=== PATIENT | female | born 1995 | race Caucasian/White ===

== ENCOUNTER 2024-09-22 20:31 | Emergency (ER) | payer MEDICAID ==
[~2024-09-22] VITALS: Ht 154.9 cm; Wt 52.5 kg
[2024-09-23] MEDS: LIDOcaine 1% W/epiNEPHrine 1:100,000 20ml vial IJ ONE (02:00)
[2024-09-23] MEDS: TETanus/Pertussis (Acell)/Diphther VAC/PF (Tdap-Adult) 0.5ml syringe IMVAC ONE (02:11)
[2024-09-23] MEDS: cephalexin 250mg capsule PO ONE (02:11)
[2024-09-23] MEDS ORDERED: CEPH-585 PO (03:11)
[2024-09-23 03:18] VITALS: BP 129/85; PULSE 112; RESP 16; TEMP 98.4; O2SAT 98
== END 2024-09-23 03:21 | disposition home or self-care (01) ==
LOC: ER 20:32
DX: L03.011 Cellulitis of right finger (principal); F17.200 Nicotine dependence, unspecified, uncomplicated
CPT/HCPCS: 26011; 73140; 90471; 90715; 99284; A6449